=== PATIENT | male | born 1970 | race Caucasian/White ===

== ENCOUNTER 2016-09-28 18:10 | Emergency (ER) | payer OTHER ==
[~2016-09-28] VITALS: Ht 182.9 cm; Wt 129.4 kg
[~2016-09-28 18:10] MED LIST: COUM2.5T11 PO; FLUT1SPR2; IBUP600T26 PO; LORA10TA2 PO; LYRI75CA PO; PERCOCET PO; RANI150C PO; TRIA0.1L TOP; TYLE325T5 PO; ZOLO50TA PO
[2016-09-28] MEDS ORDERED: IBUPROFEN 600 MG TAB PO ONE (21:00)
[2016-09-28] MEDS ORDERED: NAPR500T PO (21:12)
[2016-09-28 21:20] VITALS: BP 141/96
== END 2016-09-28 21:22 | disposition home or self-care (01) ==
LOC: M ED 21:05
DX: M54.9 Dorsalgia, unspecified (principal); F41.9 Anxiety disorder, unspecified; F32.9 Major depressive disorder, single episode, unspecified; R56.9 Unspecified convulsions; Z79.899 Other long term (current) drug therapy; Z88.5 Allergy status to narcotic agent

== ENCOUNTER → 2016-11-25 | Outpatient (REF) | payer OTHER, MEDICAID ==
[~2016-11-25] MED LIST changes: -COUM2.5T11 PO; +COUM2.5T17 PO; +IBUP-1022 PO; -IBUP600T26 PO; +NAPR500T PO
[2016-11-25 20:21] LABS: MEAN CORPUSCULAR HEMOGLOBIN 31.9 pg (27.0-33.0); MEAN CORPUSCULAR HGB CONC 34.4 g/dl (32.0-36.5); MEAN CORPUSCULAR VOLUME 92.6 fl (80.0-96.0); RED CELL DISTRIBUTION WIDTH 13.5 % (11.5-14.5); WHITE BLOOD COUNT 4.3 K/mm3 (4.0-10.0)
[2016-11-25 20:38] LABS: ALBUMIN 3.6 GM/DL (3.2-5.2); ALKALINE PHOSPHATASE 77 U/L (45-117); ALT/SGPT 26 U/L (12-78); ANION GAP 7 MEQ/L (8-16); AST/SGOT 14 U/L (15-37); BILIRUBIN,TOTAL 0.4 MG/DL (0.2-1.0); BLOOD UREA NITROGEN 6 MG/DL (7-18); CALCIUM LEVEL 8.3 MG/DL (8.5-10.1); CARBON DIOXIDE LEVEL 31 MEQ/L (21-32); CHLORIDE LEVEL 105 MEQ/L (98-107); CHOLESTEROL LEVEL 134 MG/DL (<200); CREATININE FOR GFR 0.77 MG/DL (0.70-1.30); GLOMERULAR FILTRATION RATE > 60.0 (>60); GLUCOSE, FASTING 99 MG/DL (70-105); SODIUM LEVEL 143 MEQ/L (136-145); TOTAL PROTEIN 6.6 GM/DL (6.4-8.2); TRIGLYCERIDES LEVEL 131 MG/DL (<150)
== END ==
LOC: M LAB REF 17:50
PROVIDERS: ATTEND Nurse Practitioner Family
DX: Z13.220 Encounter for screening for lipoid disorders (principal); Z13.29 Encounter for screening for other suspected endocrine disorder; F34.1 Dysthymic disorder; I51.7 Cardiomegaly; F41.0 Panic disorder [episodic paroxysmal anxiety]

== ENCOUNTER → 2017-01-25 | Outpatient (REF) | payer OTHER, MEDICAID | LOC: M LAB REF 13:00 | PROVIDERS: ATTEND Nurse Practitioner Family | DX: E55.9 Vitamin D deficiency, unspecified (principal) ==

== ENCOUNTER → 2018-09-19 | Outpatient (REF) | payer OTHER ==
[~2018-09-19] MED LIST changes: +LORA-243 PO; -LORA10TA2 PO; +NAPR-837 PO; -NAPR500T PO; -TRIA0.1L TOP; +TRIA2LOT TOP
[2018-09-19 19:22] LABS: BASO # 0.1 10^3/uL (0.0-0.2); BASO % 0.8 % (0.0-1.0); EOS # 0.1 10^3/uL (0.0-0.50); EOS % 2.1 % (0.0-3.0); HEMATOCRIT 44.6 % (42.0-52.0); HEMOGLOBIN 14.5 g/dl (13.5-17.5); LYMPH # 1.8 10^3/uL (1.5-4.5); LYMPH % 29.3 % (24.0-44.0); MEAN CORPUSCULAR HEMOGLOBIN 31.3 pg (27.0-33.0); MEAN CORPUSCULAR HGB CONC 32.5 g/dl (32.0-36.5); MEAN CORPUSCULAR VOLUME 96.3 fl (80.0-96.0); MONO # 0.5 10^3/uL (0.0-0.8); MONO % 8.6 % (0.0-5.0); NEUTROPHILS # 3.6 10^3/uL (1.8-7.7); PLATELET COUNT, AUTOMATED 212 10^3/uL (150-450); RED BLOOD COUNT 4.63 10^6/uL (4.30-6.10); WHITE BLOOD COUNT 6.1 10^3/uL (4.0-10.0)
[2018-09-19 19:35] LABS: ALBUMIN 3.6 GM/DL (3.2-5.2); ALT/SGPT 24 U/L (12-78); BILIRUBIN,TOTAL 0.2 MG/DL (0.2-1.0); BLOOD UREA NITROGEN 7 MG/DL (7-18); CALCIUM LEVEL 8.2 MG/DL (8.5-10.1); CARBON DIOXIDE LEVEL 31 MEQ/L (21-32); CHLORIDE LEVEL 109 MEQ/L (98-107); CHOLESTEROL LEVEL 182 MG/DL (<200); CREATININE FOR GFR 0.77 MG/DL (0.70-1.30); FREE T4 0.88 NG/DL (0.76-1.46); GLOMERULAR FILTRATION RATE > 60.0 (>60); GLUCOSE, FASTING 89 MG/DL (70-100); HDL CHOLESTEROL 40 MG/DL (>40); LDL CHOLESTEROL 126 MG/DL (<100); NON-HDL-C 142 MG/DL; POTASSIUM SERUM 4.8 MEQ/L (3.5-5.1); SODIUM LEVEL 144 MEQ/L (136-145); TOTAL 25(OH) VITAMIN D 17.6 NG/ML (30.0-100.0); TRIGLYCERIDES LEVEL 82 MG/DL (<150)
[2018-09-19 19:40] LABS: HEMOGLOBIN A1c 5.2 %
== END ==
LOC: M SFHCPLAZ 14:59
PROVIDERS: ATTEND Nurse Practitioner Family
DX: F32.9 Major depressive disorder, single episode, unspecified (principal); E78.5 Hyperlipidemia, unspecified; E55.9 Vitamin D deficiency, unspecified

== ENCOUNTER → 2018-09-27 | Outpatient (CLI) | payer OTHER ==
--- NOTE | 2018-09-27 10:44 | REP ---
LUMBOSACRAL SPINE SERIES: Five views of the lumbosacral spine are performed. There is no compression fracture. There is normal lumbar lordosis. There is mild diffuse spurring. There is slight disc space narrowing at all levels with subchondral sclerosis. There is sclerosis at the facets of L4-5 and especially L5-S1. Posterior elements are intact. There is mild narrowing and sclerosis at the sacroiliac joints. IMPRESSION: Mild diffuse degenerative changes. Electronically Signed by Ricky Lloyd MD 09/27/2018 07:31 P
--- NOTE | 2018-09-27 10:45 | REP ---
RIGHT HAND, FOUR VIEWS: HISTORY: Numbness. There is no acute fracture or dislocation. The joint spaces are normal in appearance. IMPRESSION: There is no acute fracture or dislocation. Electronically Signed by Jony Jimenez MD 09/27/2018 10:54 A
== END ==
LOC: M RAD 09:44
PROVIDERS: ATTEND Nurse Practitioner Family
DX: M25.78 Osteophyte, vertebrae (principal); M51.37 Other intervertebral disc degeneration, lumbosacral region; R20.0 Anesthesia of skin

== ENCOUNTER → 2018-09-27 | Outpatient (CLI) | payer OTHER ==
--- NOTE | 2018-09-29 21:37 | SLEEPHOME ---
DATE OF PROCEDURE: 09/27/2018 ORDERED BY: BALWINDER Hester Diagnostic home sleep testing was performed due to concern for the obstructive sleep apnea syndrome. For testing, a nocturnal T3 respiratory monitoring device was used. Continuous record was made of pulse, oxygen saturation, airflow, chest, abdominal strain and body position. 9 hours and 59 minutes of data were reviewed. There were 4 hours and 25 minutes marked as time in bed. During the interval marked time in bed there were 480 respiratory events identified of 10 seconds in duration or greater for respiratory event index of 108.4. The events were primarily obstructive. Baseline pulse rate 78 beats per minute, pulse rate ranged 64-109. Baseline saturation 94%. Saturations fell to 74% and the oxygen desaturation index of 71.3. Testing was performed in both the supine and nonsupine positions. IMPRESSION Abnormal home sleep testing with repetitive respiratory events and oxygen desaturations to 74% with a respiratory event index of 108.4 is consistent with severe obstructive sleep apnea syndrome. RECOMMENDATIONS The patient should be encouraged to undergo formal sleep evaluation at his earliest convenience and in laboratory pressure titration.
== END ==
LOC: M SLEEP HO 09:28
PROVIDERS: ATTEND Nurse Practitioner Family
DX: R40.0 Somnolence (principal)

== ENCOUNTER 2018-10-06 10:45 | Outpatient (RCR) | payer OTHER ==
[2018-10-16] MEDS ORDERED: GABA-843 PO (22:15)
[2018-10-16] MEDS ORDERED: FURO20TA2 PO (22:15)
[2018-10-16] MEDS ORDERED: TESS100C PO (22:48)
== END 2018-10-16 ==
LOC: M PT 10:45
PROVIDERS: ATTEND Nurse Practitioner Family
DX: M54.9 Dorsalgia, unspecified (principal)

== ENCOUNTER 2018-10-16 22:03 | Emergency (ER) | payer OTHER ==
[~2018-10-16] VITALS: Ht 180.3 cm; Wt 127.7 kg
[2018-10-16 22:04] VITALS: BP 125/76
[2018-10-16] MEDS ORDERED: GABA-843 PO (22:15)
[2018-10-16] MEDS ORDERED: FURO20TA2 PO (22:15)
[2018-10-16] MEDS ORDERED: TESS100C PO (22:48)
[2018-10-16] MEDS ORDERED: BENZONATATE 100 MG CAP PO ONE (23:00)
== END 2018-10-16 23:01 | disposition home or self-care (01) ==
LOC: M ED 22:03
DX: J00 Acute nasopharyngitis [common cold] (principal); R56.9 Unspecified convulsions; Z79.899 Other long term (current) drug therapy; Z88.5 Allergy status to narcotic agent

== ENCOUNTER → 2019-06-26 | Outpatient (CLI) | payer OTHER ==
[~2019-06-26] MED LIST changes: +FURO20TA2 PO; +GABA-843 PO; +TESS100C PO
--- NOTE | 2019-06-26 19:43 | REPPI ---
Left knee four views: There is a total knee arthroplasty. The components are tightly applied and in satisfactory positions alignment. There is no evidence of loosening. There is no effusion. Mineralization is normal. Electronically Signed by Ricky Seals MD 06/26/2019 07:34 P
--- NOTE | 2019-06-26 19:44 | REPPI ---
Thoracic spine three views: Comparison is the PA and lateral chest of 01/08/2014. Vertebral body heights and alignment are normal. There is moderate degenerative disc disease throughout the thoracic spine, unchanged. The pedicles are unremarkable. Impression: Moderate multilevel degenerative disc disease. Electronically Signed by Ricky Seals MD 06/26/2019 07:35 P
--- NOTE | 2019-06-26 19:48 | REPPI ---
Cervical spine age views: There are no comparisons. Vertebral body heights and alignment are normal C1-C7. T1 is obscured by the shoulders. There is degenerative disc disease at C2-3, C5-6 and C6-7. There is facet osteoarthritis. The prevertebral soft tissues are unremarkable. There is no listhesis on flexion or extension. There is bony foraminal encroachment from uncinate spurring on the left at C4-5, C5-6 and C6-7. There is bony foraminal encroachment from uncinate spurring on the right at C5-6 and C6-7. Impression: Degenerative disc disease, facet osteoarthritis and foraminal encroachment as described. Electronically Signed by Ricky Seals MD 06/26/2019 07:40 P
--- NOTE | 2019-06-26 19:55 | REPPI ---
Lumbar spine five views: Comparison is 09/27/2018. There is moderate degenerative disc disease at L3-4 and L4-5. This is unchanged. The disc spaces are otherwise unremarkable. Vertebral body heights and alignment are normal. There is no spondylolysis or spondylolisthesis. The pedicles are unremarkable. There is mild facet osteoarthritis at L5 S1. The sacroiliac articulations are unremarkable. Impression: The moderate degenerative disc disease at L3-4 and L5. Mild facet osteoarthritis at L5 S1. Electronically Signed by Ricky Seals MD 06/26/2019 07:45 P
== END ==
LOC: M PLAIMG 15:46
PROVIDERS: ATTEND Physician Assistant Medical
DX: M50.31 Other cervical disc degeneration, high cervical region (principal); M51.34 Other intervertebral disc degeneration, thoracic region; M25.562 Pain in left knee; M51.36 Other intervertebral disc degeneration, lumbar region; M47.897 Other spondylosis, lumbosacral region; M50.322 Other cervical disc degeneration at C5-C6 level; M50.323 Other cervical disc degeneration at C6-C7 level

== ENCOUNTER → 2020-12-03 | Outpatient (CLI) | payer OTHER ==
[~2020-12-03] MED LIST changes: +GABA-282 PO; -GABA-843 PO
[2020-12-03 15:38] LABS: HEMOGLOBIN A1c 5.4 %
[2020-12-03 15:54] LABS: ALBUMIN 3.6 GM/DL (3.2-5.2); ALT/SGPT 33 U/L (12-78); BILIRUBIN,TOTAL 0.3 MG/DL (0.2-1.0); BLOOD UREA NITROGEN 11 MG/DL (7-18); CARBON DIOXIDE LEVEL 30 MEQ/L (21-32); CHLORIDE LEVEL 109 MEQ/L (98-107); CHOLESTEROL LEVEL 162 MG/DL (<200); CHOLESTEROL RISK RATIO 4.263 (<5); CREATININE FOR GFR 0.74 MG/DL (0.70-1.30); FREE T4 0.73 NG/DL (0.76-1.46); GLOMERULAR FILTRATION RATE > 60.0 (>60); GLUCOSE, FASTING 96 MG/DL (70-100); HDL CHOLESTEROL 38 MG/DL (>40); LDL CHOLESTEROL 96 MG/DL (<100); NON-HDL-C 124 MG/DL; POTASSIUM SERUM 4.7 MEQ/L (3.5-5.1); SODIUM LEVEL 141 MEQ/L (136-145); TOTAL PROTEIN 6.9 GM/DL (6.4-8.2); TRIGLYCERIDES LEVEL 142 MG/DL (<150)
[2020-12-03 15:57] LABS: TOTAL 25(OH) VITAMIN D 25.3 NG/ML (30.0-100.0)
== END ==
LOC: M PLALAB 11:36
PROVIDERS: ATTEND Nurse Practitioner Family
DX: E78.5 Hyperlipidemia, unspecified (principal); E55.9 Vitamin D deficiency, unspecified

== ENCOUNTER → 2022-06-03 | Outpatient (CLI) | payer OTHER ==
[2022-06-03 17:21] LABS: HEMATOCRIT 42.7 % (42.0-52.0); HEMOGLOBIN 14.2 g/dl (13.5-17.5); MEAN CORPUSCULAR HEMOGLOBIN 31.6 pg (27.0-33.0); MEAN CORPUSCULAR HGB CONC 33.3 g/dl (32.0-36.5); MEAN CORPUSCULAR VOLUME 94.9 fl (80.0-96.0); PLATELET COUNT, AUTOMATED 236 10^3/uL (150-450); WHITE BLOOD COUNT 6.5 10^3/uL (4.0-10.0)
[2022-06-03 17:48] LABS: C REACTIVE PROTEIN QUANTITATIV < 0.40 MG/DL (<1.0)
[2022-06-03 17:49] LABS: CREATININE, URINE 100.9 MG/DL; MAU/CREAT RATIO 10.9 MCG/MG (0.0-30.0)
[2022-06-03 18:25] LABS: ALBUMIN 3.9 G/DL (3.2-5.2); ALKALINE PHOSPHATASE 76 U/L (46-116); ALT/SGPT 36 U/L (7.0-40); AST/SGOT 24 U/L (<34); BILIRUBIN,TOTAL 0.5 MG/DL (0.3-1.2); BLOOD UREA NITROGEN 7 MG/DL (9-23); CALCIUM LEVEL 8.9 MG/DL (8.5-10.1); CARBON DIOXIDE LEVEL 30 MMOL/L (20-31); CHLORIDE LEVEL 103 MMOL/L (98-107); CHOLESTEROL LEVEL 220 MG/DL (<200); CHOLESTEROL RISK RATIO 4.91 (<5); FREE T4 0.88 NG/DL (0.89-1.76); GLOMERULAR FILTRATION RATE > 60.0 (>56); GLUCOSE, FASTING 89 MG/DL (60-100); HDL CHOLESTEROL 44.8 MG/DL (>40); NON-HDL-C 175 MG/DL; POTASSIUM SERUM 4.6 MMOL/L (3.5-5.1); SODIUM LEVEL 137 MMOL/L (136-145); THYROID STIMULATING HORMONE 2.561 uIU/ML (0.55-4.78); TOTAL 25(OH) VITAMIN D 19.8 NG/ML (20.0-100.0); VITAMIN B12 LEVEL 298 PG/ML (211-911)
[2022-06-03 19:23] LABS: HEMOGLOBIN A1c 5.4 % (4.0-6.0)
[2022-06-03 22:21] LABS: LDL CHOLESTEROL 152.4 MG/DL (<100); TRIGLYCERIDES LEVEL 114 MG/DL (<150)
== END ==
LOC: M PLALAB 14:36
PROVIDERS: ATTEND Internal Medicine Hematology
DX: I10 Essential (primary) hypertension (principal); F79 Unspecified intellectual disabilities; M54.50 Low back pain, unspecified

== ENCOUNTER 2022-06-22 09:47 | Outpatient (RCR) | payer OTHER | END 2022-07-17 | LOC: M PT 09:47 | PROVIDERS: ATTEND Internal Medicine Hematology | DX: M54.50 Low back pain, unspecified (principal) ==

== ENCOUNTER → 2022-07-05 | Outpatient (REF) | payer OTHER | LOC: M SFHCPLAZ 07-06 15:15 | PROVIDERS: ATTEND Internal Medicine Hematology | DX: Z12.5 Encounter for screening for malignant neoplasm of prostate (principal); I10 Essential (primary) hypertension ==

== ENCOUNTER → 2023-09-28 | Outpatient (CLI) | payer OTHER | LOC: M RAD 09:22 | PROVIDERS: ATTEND Internal Medicine Pulmonary Disease | DX: Z12.2 Encounter for screening for malignant neoplasm of respiratory organs (principal); Z87.891 Personal history of nicotine dependence ==

== ENCOUNTER → 2023-11-02 | Outpatient (CLI) | payer OTHER | LOC: M SOG 07:57 | PROVIDERS: ATTEND Orthopaedic Surgery | DX: M25.561 Pain in right knee (principal); M25.562 Pain in left knee; Z96.651 Presence of right artificial knee joint ==

== ENCOUNTER → 2023-11-17 | Outpatient (RCR) | payer OTHER | LOC: M PT 11-11 09:28 | PROVIDERS: ATTEND Orthopaedic Surgery | DX: M25.561 Pain in right knee (principal) ==

== ENCOUNTER → 2023-11-25 | Outpatient (CLI) | payer OTHER | LOC: M PAIN 08:00 | PROVIDERS: ATTEND Nurse Practitioner Family | DX: M79.18 Myalgia, other site (principal); M54.50 Low back pain, unspecified; G89.29 Other chronic pain; K21.9 Gastro-esophageal reflux disease without esophagitis; L40.9 Psoriasis, unspecified; F32.A Depression, unspecified; F41.9 Anxiety disorder, unspecified; M25.562 Pain in left knee; F70 Mild intellectual disabilities; Z87.891 Personal history of nicotine dependence; Z79.890 Hormone replacement therapy; Z79.899 Other long term (current) drug therapy; Z88.5 Allergy status to narcotic agent ==

== ENCOUNTER 2023-12-01 10:45 | Outpatient (RCR) | payer OTHER | END 2023-12-18 | LOC: M PT 10:45 | PROVIDERS: ATTEND Orthopaedic Surgery | DX: M25.561 Pain in right knee (principal) ==

== ENCOUNTER → 2024-01-19 | Outpatient (CLI) | payer OTHER ==
[~2024-01-19] MED LIST changes: +GABA-1172 PO; -GABA-282 PO
[2024-01-19 13:30] LABS: BASO % 0.4 % (0.0-1.0); EOS % 0.6 % (0.0-3.0); HEMATOCRIT 42.7 % (42.0-52.0); HEMOGLOBIN 14.6 g/dl (13.5-17.5); LYMPH # 1.5 10^3/uL (1.5-5.0); LYMPH % 21.5 % (24.0-44.0); MEAN CORPUSCULAR HEMOGLOBIN 31.7 pg (27.0-33.0); MEAN CORPUSCULAR HGB CONC 34.2 g/dl (32.0-36.5); MEAN CORPUSCULAR VOLUME 92.6 fl (80.0-96.0); MONO # 0.7 10^3/uL (0.0-0.8); MONO % 10.1 % (2.0-8.0); NEUTROPHILS # 4.6 10^3/uL (1.5-8.5); NEUTROPHILS % 67.3 % (36.0-66.0); PLATELET COUNT, AUTOMATED 217 10^3/uL (150-450); RED BLOOD COUNT 4.61 10^6/uL (4.30-6.10); WHITE BLOOD COUNT 6.8 10^3/uL (4.0-10.0)
[2024-01-19 13:34] LABS: C REACTIVE PROTEIN QUANTITATIV < 0.40 MG/DL (<1.0)
[2024-01-19 13:35] LABS: ALBUMIN 3.8 G/DL (3.2-5.2); ALKALINE PHOSPHATASE 63 U/L (46-116); ALT/SGPT 55 U/L (7.0-40); AST/SGOT 18 U/L (<34); BILIRUBIN,TOTAL 0.5 MG/DL (0.3-1.2); BLOOD UREA NITROGEN 16 MG/DL (9-23); CALCIUM LEVEL 9.6 MG/DL (8.5-10.1); CARBON DIOXIDE LEVEL 32 MMOL/L (20-31); CHLORIDE LEVEL 104 MMOL/L (98-107); CHOLESTEROL LEVEL 128 MG/DL (<200); CHOLESTEROL RISK RATIO 3.24 (<5); CREATININE FOR GFR 0.75 MG/DL (0.70-1.30); GLOMERULAR FILTRATION RATE > 60.0 (>56); GLUCOSE, FASTING 101 MG/DL (60-100); HDL CHOLESTEROL 39.4 MG/DL (>40); LDL CHOLESTEROL 66.8 MG/DL (<100); NON-HDL-C 88.6 MG/DL; POTASSIUM SERUM 3.9 MMOL/L (3.5-5.1); SODIUM LEVEL 139 MMOL/L (136-145); TOTAL PROTEIN 7.1 G/DL (5.7-8.2); TRIGLYCERIDES LEVEL 109 MG/DL (<150)
[2024-01-19 13:37] LABS: FREE T4 1.19 NG/DL (0.89-1.76); THYROID STIMULATING HORMONE 0.612 uIU/ML (0.55-4.78); VITAMIN B12 LEVEL 343 PG/ML (211-911)
[2024-01-19 13:38] LABS: TOTAL 25(OH) VITAMIN D 39.5 NG/ML (20.0-100.0)
[2024-01-19 13:55] LABS: CREATININE, URINE 215.6 MG/DL; MAU/CREAT RATIO 7.8 MCG/MG (0.0-30.0)
[2024-01-19 14:06] LABS: HEMOGLOBIN A1c 5.3 % (4.0-6.0)
== END ==
LOC: M PLALAB 10:07
PROVIDERS: ATTEND Internal Medicine Hematology
DX: E03.9 Hypothyroidism, unspecified (principal)